=== PATIENT | female | born 1990 | race Caucasian/White ===

== ENCOUNTER 2018-05-25 04:48 | Emergency (ER) | payer SELFPAY ==
[~2018-05-25] VITALS: Ht 172.7 cm; Wt 110.2 kg
[2018-05-25 05:52] LABS: BILIRUBIN,URINE 1+ (NEGATIVE); CLARITY,URINE SL CLOUDY; COLOR,URINE YELLOW; GLUCOSE, URINE (UA) NEGATIVE (NEGATIVE); KETONES,URINE NEGATIVE (NEGATIVE); NITRITE,URINE NEGATIVE (NEGATIVE); PH,URINE 5 (5-9); PROTEIN,URINE 3+ (NEGATIVE)
[2018-05-25 05:53] LABS: BACTERIA,URINE LARGE /HPF; LEUKOCYTE ESTERASE ,URINE 1+ (NEGATIVE); RBC,URINE 0-2 /HPF; UROBILINOGEN,URINE NORMAL (NORMAL)
[2018-05-25] MEDS ORDERED: NS IV 1000 ML 1,000 ML IV SCH (05:53)
[2018-05-25] MEDS ORDERED: ACETAMINOPHEN 500 MG TAB (TYLENOL) PO ONE (06:00)
[2018-05-25] MEDS ORDERED: ONDANSETRON 4 MG/2 ML (SDV) Z0FRAN IVP ONE (06:00)
--- NOTE | 2018-05-25 06:01 | ED GI ---
General Chief Complaint: Fever-Adult/Adol Stated Complaint: DIARRHEA; CHILLS Nursing Triage Note: pt presents with boyfriend, states 16 weeks , symptoms began yesterday around 2029 after eating at [email or web address]. c/o chills and fever at home, did not take temperature or medications. Pt from [place] area traveling for holidays, states no local dr and no care other than confirmation by ultrasound and blood work at the [facility] in [place]. Pt continues to have retching with dry heaves during triage. Sepsis Screen: Possible Sepsis Risk Source of Information: Patient, Other (boyfriend) Exam Limitations: No Limitations (SATYA ALLEN) History of Present Illness Date Seen by Provider: May 25, 2018 Time Seen by Provider: 05:45 Initial Comments The patient presents to ER by private conveyance with chief complaint that she is a at 16 weeks 1 day with a last missed a period of February 01, 2018 and having some nausea vomiting and diarrhea tonight. The symptoms started about 30 minutes after eating at [employer]. No one else around her was sick. She's feeling some chills now she's not had anything for it. She has no history of IBS or IBD. She's not had any cold or flulike symptoms. She denies shortness of breath cough or rash. (SATYA ALLEN) Timing/Duration: 12 Hours Severity/Quality: Moderate, Cramping Location: Generalized Abdomen Radiation: No Radiation Modifying Factors: Worsens With Eating; Improves With Resting Associated Symptoms: No Back Pain, No Chest Pain, No Fever/Chills; Nausea/ Vomiting; No Weakness (AMIRAH WYNN MD) Allergies and Home Medications Allergies Coded Allergies: silicone (Unverified Allergy, Unknown, swelling rash, 05/25/18) Home Medications Promethazine HCl 25 Mg Tablet, 25 MG PO Q8H PRN for NAUSEA/VOMITING Prescribed by: AMIRAH WYNN on 05/25/18 0816 Patient Home Medication List Home Medication List Reviewed: Yes (AMIRAH WYNN MD) Review of Systems Review of Systems Constitutional: see HPI; No chills, No fever Cardiovascular: No Symptoms Reported Gastrointestinal: See HPI, Abdominal Pain, Diarrhea (4-5 nonbloody episodes), Nausea, Vomiting Genitourinary: No Symptoms Reported Musculoskeletal: no symptoms reported (AMIRAH WYNN MD) Past Spmwaud-Cnjlth-Bnbknw Hx Past Med/Social Hx: Reviewed Nursing Past Med/Soc Hx (AMIRAH WYNN MD) Patient Social History Recent Foreign Travel: No Contact w/Someone Who Travel: No Recent Infectious Disease Expo: No (SATYA ALLEN) Alcohol Use: Denies Use Recreational Drug Use: No Smoking Status: Never a Smoker (AMIRAH WYNN MD) Past Medical History : Yes Expected Date of Delivery: Nov 08, 2018 Hx : 1 Hx Para: 0 Hx Total # of Abortions (Sp): 0 (SATYA ALLEN) Surgeries: Yes Orthopedic Respiratory: No Cardiac: No Neurological: No (AMIRAH WYNN MD) Family Medical History Reviewed Nursing Family Hx (AMIRAH WYNN MD) No Pertinent Family Hx (AMIRAH WYNN MD) Physical Exam Vital Signs Vital Signs - First Documented 05/25/18 05:24 Temp 99.5 Pulse 98 Resp 18 B/P (MAP) 130/84 (99) Pulse Ox 98 O2 Delivery Room Air (AMIRAH WYNN MD) Vital Signs Capillary Refill : Less Than 3 Seconds (SATYA ALLEN) Height/Weight/BMI Height: 5'8.00" Weight: 243lbs. oz. [id number]; BMI Method:Actual (SATYA ALLEN) General Appearance: WD/WN, no apparent distress Neck: full range of motion, supple Respiratory: lungs clear, normal breath sounds Cardiovascular: regular rate, rhythm, no murmur Gastrointestinal: normal bowel sounds, non tender, soft, no organomegaly, no pulsatile mass Extremities: non-tender, normal inspection Back: normal inspection, no CVA tenderness, no vertebral tenderness Neurologic/Psychiatric: alert, oriented x 3 Skin: normal color, warm/dry (AMIRAH WYNN MD) Focused Exam Lactate Level 05/25/18 06:53: Lactic Acid Level 0.85 (AMIRAH WYNN MD) Lactic Acid Level Laboratory Tests Test 05/25/18 06:53 Lactic Acid Level 0.85 MMOL/L (0.50-2.00) (AMIRAH WYNN MD) Progress/Results/Core Measures Results/Orders Lab Results Laboratory Tests Test 05/25/18 00:00 05/25/18 06:00 05/25/18 06:53 Range/Units Urine Color YELLOW Urine Clarity SL CLOUDY Urine pH 5 5-9 Urine Specific Sultan 1.015 L 1.016-1.022 Urine Protein 3+ H NEGATIVE Urine Glucose (UA) NEGATIVE NEGATIVE Urine Ketones NEGATIVE NEGATIVE Urine Nitrite NEGATIVE NEGATIVE Urine Bilirubin 1+ H NEGATIVE Urine Urobilinogen NORMAL NORMAL MG/DL Urine Leukocyte Esterase 1+ H NEGATIVE Urine RBC (Auto) NEGATIVE NEGATIVE Urine RBC 0-2 /HPF Urine WBC 2-5 /HPF Urine Squamous Epithelial Cells 5-10 /HPF Urine Crystals NONE /LPF Urine Bacteria LARGE H /HPF Urine Casts NONE /LPF Urine Mucus MODERATE H /LPF Urine Culture Indicated YES White Blood Count 13.1 H 4.3-11.0 10^3/uL Red Blood Count 4.37 4.35-5.85 10^6/uL Hemoglobin 14.2 11.5-16.0 G/DL Hematocrit 39 35-52 % Mean Corpuscular Volume 90 80-99 FL Mean Corpuscular Hemoglobin 33 25-34 PG Mean Corpuscular Hemoglobin Concent 36 32-36 G/DL Red Cell Distribution Width 12.7 10.0-14.5 % Platelet Count 271 130-400 10^3/uL Mean Platelet Volume 11.5 H 7.4-10.4 FL Neutrophils (%) (Auto) 86 H 42-75 % Lymphocytes (%) (Auto) 7 L 12-44 % Monocytes (%) (Auto) 6 0-12 % Eosinophils (%) (Auto) 1 0-10 % Basophils (%) (Auto) 0 0-10 % Neutrophils # (Auto) 11.3 H 1.8-7.8 X 10^3 Lymphocytes # (Auto) 0.9 L 1.0-4.0 X 10^3 Monocytes # (Auto) 0.8 0.0-1.0 X 10^3 Eosinophils # (Auto) 0.1 0.0-0.3 10^3/uL Basophils # (Auto) 0.0 0.0-0.1 10^3/uL Neutrophils % (Manual) 85 % Lymphocytes % (Manual) 2 % Monocytes % (Manual) 2 % Eosinophils % (Manual) 0 % Basophils % (Manual) 0 % Band Neutrophils 4 % Reactive Lymphocytes 7 % Blood Morphology Comment NORMAL Prothrombin Time 12.7 12.2-14.7 SEC INR Comment 1.0 0.8-1.4 Activated Partial Thromboplast Time 30 24-35 SEC Sodium Level 137 135-145 MMOL/L Potassium Level 4.4 3.6-5.0 MMOL/L Chloride Level 108 H 98-107 MMOL/L Carbon Dioxide Level 17 L 21-32 MMOL/L Anion Gap 12 5-14 MMOL/L Blood Urea Nitrogen 7 7-18 MG/DL Creatinine 0.69 0.60-1.30 MG/DL Estimat Glomerular Filtration Rate > 60 BUN/Creatinine Ratio 10 Glucose Level 93 70-105 MG/DL Calcium Level 9.1 8.5-10.1 MG/DL Corrected Calcium 9.2 8.5-10.1 MG/DL Total Bilirubin 0.6 0.1-1.0 MG/DL Aspartate Amino Transf (AST/SGOT) 35 H 5-34 U/L Alanine Aminotransferase (ALT/SGPT) 68 H 0-55 U/L Alkaline Phosphatase 50 40-136 U/L Total Protein 7.0 6.4-8.2 GM/DL Albumin 3.9 3.2-4.5 GM/DL Lactic Acid Level 0.85 0.50-2.00 MMOL/L (AMIRAH WYNN MD) Micro Results Microbiology 05/25/18 Influenza Types A,B Antigen (LOU) - Final, Complete (AMIRAH WYNN MD) My Orders Orders - AMIRAH WYNN MD D5 Ns 1000 Ml Iv Solution (Dextrose 5%/0 (05/25/18 07:06) Promethazine Injection (Phenergan Injec (05/25/18 07:36) (AMIRAH WYNN MD) Medications Given in ED Current Medications Medications Dose Ordered Sig/Nelson Route Start Time Stop Time Status Last Admin Dose Admin Acetaminophen 1,000 mg ONCE ONCE PO 05/25/18 06:00 05/25/18 06:01 DC 05/25/18 07:09 1,000 MG Ondansetron HCl 4 mg ONCE ONCE IVP 05/25/18 06:00 05/25/18 06:01 DC 05/25/18 06:11 4 MG (AMIRAH WYNN MD) Vital Signs/I&O 05/25/18 05/25/18 05:24 07:09 Temp 99.5 99.5 Pulse 98 Resp 18 B/P (MAP) 130/84 (99) Pulse Ox 98 O2 Delivery Room Air (AMIRAH WYNN MD) Blood Pressure Mean: 99 Urine -Bedside: Positive (SATYA ALLEN) Progress Progress Note : Progress Note 0605: Assumed care of the patient pending all labs. Repeat exam shows patient without significant abdominal pain but still feels nauseated. 0715: Still with some discomfort. Repeat bolus with D5NS 1 L bolus. 0800: We have added Phenergan 25 mg IV to the bag that is currently running. She is doing a little better. 0831: Overall better. Bedside ultrasound shows heart tones of 150 with positive movement. Patient feels like she can go home. Discharged home with return precautions. Patient and family verbalize understanding instructions and agreement with plan. UA noted. Culture pending. We will wait for culture for antibiotics as it does appear to have some contamination. (AMIRAH WYNN MD) Transfer of Care Time: 06:00 Care transferred to: Dr Wynn (SATYA ALLEN) Departure Impression Primary Impression: Nausea and vomiting Qualified Codes: R11.2 - Nausea with vomiting, unspecified Additional Impression: Dehydration Disposition: HOME, SELF-CARE Condition: Stable Departure-Patient Inst. Decision time for Depature: 08:14 (AMIRAH WYNN MD) Patient Instructions: Nausea and Vomiting, Adult (DC) Add. Discharge Instructions: All discharge instructions reviewed with patient and/or family. Voiced understanding. Liquid diet for the next 24 hours and then advance as tolerated. Take small sips frequently. She is fluids such as Gatorade, Sprite, ryan willow or similar. Take nausea medicine as directed if needed. It will make you drowsy. Return for worse pain, fever, vomiting, weakness, breathing problems or other concerns as needed. Scripts Promethazine HCl (Promethazine Tablet) 25 Mg Tablet 25 MG PO Q8H PRN for NAUSEA/VOMITING, #14 TAB 0 Refills Prov: AMIRAH WYNN MD 05/25/18 SATYA ALLEN May 25, 2018 06:01 AMIRAH WYNN MD May 25, 2018 06:11
[2018-05-25 06:24] LABS: BASOPHILS % (AUTO) 0 % (0-10); EOSINOPHILS # (AUTO) 0.1 10^3/uL (0.0-0.3); EOSINOPHILS % (AUTO) 1 % (0-10); HEMATOCRIT 39 % (35-52); HEMOGLOBIN 14.2 G/DL (11.5-16.0); LYMPHOCYTES # (AUTO) 0.9 X 10^3 (1.0-4.0); LYMPHOCYTES % (AUTO) 7 % (12-44); MEAN CORPUSCULAR HEMOGLOBIN 33 PG (25-34); MEAN CORPUSCULAR HGB CONC 36 G/DL (32-36); MEAN CORPUSCULAR VOLUME 90 FL (80-99); MEAN PLATELET VOLUME 11.5 FL (7.4-10.4); MONOCYTES # (AUTO) 0.8 X 10^3 (0.0-1.0); MONOCYTES % (AUTO) 6 % (0-12); NEUTROPHILS # (AUTO) 11.3 X 10^3 (1.8-7.8); NEUTROPHILS % (AUTO) 86 % (42-75); PLATELET COUNT 271 10^3/uL (130-400); RED BLOOD COUNT 4.37 10^6/uL (4.35-5.85); RED CELL DISTRIBUTION WIDTH 12.7 % (10.0-14.5); WHITE BLOOD COUNT 13.1 10^3/uL (4.3-11.0)
[2018-05-25 06:35] LABS: NEUTROPHILS % (MANUAL) 85 %
[2018-05-25 06:36] LABS: BAND NEUTROPHILS 4 %; BASOPHILS % (MANUAL) 0 %; EOSINOPHILS % (MANUAL) 0 %; LYMPHOCYTES % (MANUAL) 2 %; MONOCYTES % (MANUAL) 2 %; RBC MORPH NORMAL; REACTIVE LYMPHOCYTES 7 %
[2018-05-25 06:43] LABS: PROTHROMBIN TIME PATIENT 12.7 SEC (12.2-14.7)
[2018-05-25 06:53] LABS: ALANINE AMINOTRANSFERASE 68 U/L (0-55); ALBUMIN 3.9 GM/DL (3.2-4.5); ALKALINE PHOSPHATASE 50 U/L (40-136); BILIRUBIN,TOTAL 0.6 MG/DL (0.1-1.0); BUN/CREATININE RATIO 10; CALCIUM 9.1 MG/DL (8.5-10.1); CARBON DIOXIDE 17 MMOL/L (21-32); CHLORIDE 108 MMOL/L (98-107); CREATININE SERUM 0.69 MG/DL (0.60-1.30); GFR ESTIMATED > 60; GLUCOSE 93 MG/DL (70-105); POTASSIUM 4.4 MMOL/L (3.6-5.0); SODIUM 137 MMOL/L (135-145)
[2018-05-25] MEDS ORDERED: D5 NS 1000 ML IV SOLUTION 1,000 ML IV STA (07:06)
[2018-05-25] MEDS ORDERED: PROMETHAZINE INJ 25 MG/ML (PHENERGAN) AMP IVP STA (07:36)
[2018-05-25] MEDS ORDERED: PROM25TA14 PO (08:16)
[2018-05-25 08:56] VITALS: BP 114/71
== END 2018-05-25 09:00 | disposition home or self-care (01) ==
LOC: ER 04:57
DX: O21.9 Vomiting of pregnancy, unspecified (principal); O99.282 Endocrine, nutritional and metabolic diseases complicating pregnancy, second trimester; E86.0 Dehydration; Z88.8 Allergy status to other drugs, medicaments and biological substances; Z3A.16 16 weeks gestation of pregnancy
CPT/HCPCS: 36415; 80053; 81000; 83605; 84703; 85007; 85027; 85610; 85730; 87040; 87088; 87804